=== PATIENT | female | born 1975 | race Caucasian/White ===

== ENCOUNTER 2019-06-08 11:21 | Emergency (ER) | payer OTHER ==
[~2019-06-08] VITALS: Ht 167.6 cm; Wt 95.3 kg
[~2019-06-08 11:21] MED LIST: ATARAX25 MG PO; BACTRIM DS 8001 TA1 PO; BENADRYL50 MG; CALCIUM 600600 M1 PO; FLEXERIL5 MG PO; GLUCOSAMINE & C1 CA2 PO; HYDROCODONE BIT1 T11 PO; IBUPROFEN800 MG PO; LISINOPRIL/HCTZ1 TA3 PO; MELOXICAM1 POW PO; NAPROSYN500 MG PO; NORCO 325 MG-51 TAB PO; PREDNICOT20 MG PO; PREDNISONE10 MG PO; ULTRAM50 MG PO; VITAMINS FOR HA1 CAP PO; VOLTAREN75 MG PO
[2019-06-08 11:34] VITALS: BP 137/81
== END 2019-06-08 12:38 | disposition home or self-care (01) ==
LOC: ED 11:21
DX: S93.401A Sprain of unspecified ligament of right ankle, initial encounter (principal); I10 Essential (primary) hypertension; Z79.899 Other long term (current) drug therapy; W22.8XXA Striking against or struck by other objects, initial encounter; Y93.01 Activity, walking, marching and hiking; Y92.69 Other specified industrial and construction area as the place of occurrence of the external cause; Y99.0 Civilian activity done for income or pay

== ENCOUNTER 2022-05-04 08:08 | Emergency (ER) | payer OTHER ==
[~2022-05-04] VITALS: Ht 165.1 cm; Wt 89.8 kg
[2022-05-04 08:16] VITALS: BP 142/83
[2022-05-04] MEDS ORDERED: K2 PLUS D3 TAB1 EACH PO (08:18)
== END 2022-05-04 10:32 | disposition home or self-care (01) ==
LOC: ED 08:08
DX: J02.9 Acute pharyngitis, unspecified (principal); Z20.822 Contact with and (suspected) exposure to COVID-19; R09.81 Nasal congestion; Z79.899 Other long term (current) drug therapy

== ENCOUNTER → 2025-01-06 | Outpatient (CLI) | payer BC, OTHER ==
[~2025-01-06] MED LIST changes: +K2 PLUS D3 TAB1 EACH PO
[2025-01-06 08:23] LABS: BASO # 0.0 10*3/uL (0.0-0.1); BASO % 0.5 % (0.0-1.0); EOS # 0.2 10*3/uL (0.0-0.4); EOS % 3.1 % (1.0-4.0); MEAN CELL VOLUME 90.4 fl (81.0-99.0); MEAN CORPUSCULAR HGB 28.6 pg (27.0-31.0); MEAN PLATELET VOLUME 8.8 fl (9.6-12.3); MONO # 0.6 10*3/uL (0.1-1.0); MONO % 9.6 % (3.0-9.0); NEUT # 3.9 10*3/uL (2.3-7.9); NEUT % 60.3 % (47.0-73.0); NUCLEATED RED BLOOD CELL 0.0 % (0.0-0.0); NUCLEATED RED BLOOD CELL 0.0 10*3/uL (0.0-0.0); PLATELET COUNT AUTOMATED 359 10*3/uL (130-400); RED CELL DISTRI WIDTH 14.4 % (0-14.5)
[2025-01-06 09:24] LABS: BUN 11 mg/dl (9-23); LDL CHOLESTEROL 115 mg/dL (9-159); SGPT/ALT 17 U/L (5-49)
== END | disposition home or self-care (01) ==
LOC: LAB 02:25
PROVIDERS: ATTEND Nurse Practitioner Primary Care
DX: I10 Essential (primary) hypertension (principal); I01.1 Acute rheumatic endocarditis; G43.919 Migraine, unspecified, intractable, without status migrainosus; E78.1 Pure hyperglyceridemia; E55.9 Vitamin D deficiency, unspecified

== ENCOUNTER → 2025-03-09 | Day surgery (SDC) | payer BC, OTHER ==
[~2025-03-09] VITALS: Ht 166.3 cm; Wt 93.9 kg
[~2025-03-09] MED LIST changes: +CLONIDINE HCL0.1 MG PO; +GLYCOPYRROLATE IN WATER/PF 0.4 MG/2 ML SYRINGE IV ONE; +IBU800 M1 PO; +Lactated Ringer's Solution 1,000 ML IV ONE; +Lidocaine Hydrochloride 2% 5 ML SDV IV ONE; +PROPOFOL 200 MG/20 ML VIAL IV ONE; +TRAZODONE50 MG PO; +TURMERIC500 M2 PO; +TYLENOL EXTRA500 MG PO
[2025-03-09 06:55] VITALS: BP 117/78
[2025-03-09 07:54] VITALS: BP 102/55
[2025-03-09 08:09] VITALS: BP 114/65
[2025-03-09 08:24] VITALS: BP 105/71
== END | disposition home or self-care (01) ==
LOC: SDC 03-05 08:00
PROVIDERS: ATTEND Surgery
DX: R19.5 Other fecal abnormalities (principal); I10 Essential (primary) hypertension; M06.9 Rheumatoid arthritis, unspecified; F32.A Depression, unspecified; F41.9 Anxiety disorder, unspecified; M19.90 Unspecified osteoarthritis, unspecified site; G43.909 Migraine, unspecified, not intractable, without status migrainosus; N20.0 Calculus of kidney; F43.10 Post-traumatic stress disorder, unspecified; Z98.890 Other specified postprocedural states; Z98.51 Tubal ligation status; Z79.899 Other long term (current) drug therapy